=== PATIENT | male | born 1980 | race Caucasian/White ===

== ENCOUNTER 2016-04-22 12:39 | Outpatient (RCR) | payer BC ==
[2016-02-24 12:16] LABS: ALBUMIN 4.7 G/DL (3.2-4.5); BILIRUBIN,DIRECT 0.2 MG/DL (0.0-0.3); BILIRUBIN,INDIRECT 0.4 MG/DL; BILIRUBIN,TOTAL 0.6 MG/DL (0.1-1.0); TOTAL PROTEIN 6.8 G/DL (6.4-8.2)
[2016-03-24 12:16] LABS: ALBUMIN 4.3 G/DL (3.2-4.5); BILIRUBIN,DIRECT 0.2 MG/DL (0.0-0.3); BILIRUBIN,INDIRECT 0.5 MG/DL; BILIRUBIN,TOTAL 0.7 MG/DL (0.1-1.0); TOTAL PROTEIN 5.9 G/DL (6.4-8.2)
[~2016-04-22 12:39] MED LIST: FLT05NA16 NSEACH; Oseltamivir Phosphate PO; PRED20TA PO; ZLP5T PO; ZOLP10TA5 PO
[2016-04-22 13:10] LABS: ALBUMIN 4.7 G/DL (3.2-4.5); BILIRUBIN,DIRECT 0.1 MG/DL (0.0-0.3); BILIRUBIN,INDIRECT 0.4 MG/DL; BILIRUBIN,TOTAL 0.5 MG/DL (0.1-1.0); TOTAL PROTEIN 6.7 G/DL (6.4-8.2)
== END 2016-05-24 | disposition home or self-care (01) ==
LOC: LAB 12:39
PROVIDERS: ATTEND Internal Medicine
DX: R94.5 Abnormal results of liver function studies (principal)
CPT/HCPCS: 36415; 80076

== ENCOUNTER 2016-06-22 11:24 | Outpatient (RCR) | payer BC ==
[2016-05-26 09:13] LABS: ALBUMIN 4.5 G/DL (3.2-4.5); BILIRUBIN,DIRECT 0.2 MG/DL (0.0-0.3); BILIRUBIN,INDIRECT 0.6 MG/DL; BILIRUBIN,TOTAL 0.8 MG/DL (0.1-1.0); TOTAL PROTEIN 6.4 G/DL (6.4-8.2)
[2016-06-22 11:48] LABS: ALBUMIN 4.5 G/DL (3.2-4.5); BILIRUBIN,DIRECT 0.2 MG/DL (0.0-0.3); BILIRUBIN,INDIRECT 0.3 MG/DL; BILIRUBIN,TOTAL 0.5 MG/DL (0.1-1.0); TOTAL PROTEIN 6.5 G/DL (6.4-8.2)
[2016-08-09] MEDS ORDERED: ONDA4TAB8 PO ×2 (11:21→11:29)
[2016-08-09] MEDS ORDERED: MECL-106 PO ×2 (11:21→11:29)
[2016-08-09] MEDS ORDERED: SCOP1PAT TD ×2 (11:21→11:29)
[2016-08-10] MEDS ORDERED: MODA200T48 PO (13:51)
[2016-08-10] MEDS ORDERED: TERI14TA PO (13:51)
== END 2016-08-24 | disposition home or self-care (01) ==
LOC: LAB 11:24
PROVIDERS: ATTEND Internal Medicine
DX: R94.5 Abnormal results of liver function studies (principal)
CPT/HCPCS: 36415; 80076

== ENCOUNTER → 2016-07-23 | Outpatient (CLI) | payer BC ==
[~2016-07-23] MED LIST changes: +MECL-106 PO; +MODA200T48 PO; +ONDA4TAB8 PO; +SCOP1PAT TD; +TERI14TA PO
[2016-07-23 08:30] LABS: BASOPHILS % (AUTO) 1 % (0-10); EOSINOPHILS # (AUTO) 0.1 10^3/uL (0.0-0.3); EOSINOPHILS % (AUTO) 2 % (0-10); LYMPHOCYTES # (AUTO) 1.3 X 10^3 (1.0-4.0); LYMPHOCYTES % (AUTO) 32 % (12-44); MEAN CORPUSCULAR HEMOGLOBIN 31 PG (25-34); MEAN CORPUSCULAR HGB CONC 35 G/DL (32-36); MEAN CORPUSCULAR VOLUME 89 FL (80-99); MEAN PLATELET VOLUME 9.4 FL (7.4-10.4); MONOCYTES # (AUTO) 0.5 X 10^3 (0.0-1.0); MONOCYTES % (AUTO) 11 % (0-12); NEUTROPHILS # (AUTO) 2.2 X 10^3 (1.8-7.8); NEUTROPHILS % (AUTO) 54 % (42-75); PLATELET COUNT 228 10^3/uL (130-400); RED BLOOD COUNT 5.15 10^6/uL (4.35-5.85); RED CELL DISTRIBUTION WIDTH 12.5 % (10.0-14.5)
[2016-07-23 08:51] LABS: ALANINE AMINOTRANSFERASE 19 U/L (0-55); ALBUMIN 4.2 G/DL (3.2-4.5); ANION GAP 5 MMOL/L (5-14); ASPARTATE AMINO TRANSFERASE 19 U/L (5-34); BILIRUBIN,DIRECT 0.3 MG/DL (0.0-0.3); BILIRUBIN,INDIRECT 0.5 MG/DL; BILIRUBIN,TOTAL 0.8 MG/DL (0.1-1.0); BLOOD UREA NITROGEN 16 MG/DL (7-18); BUN/CREATININE RATIO 15; CALCIUM 8.9 MG/DL (8.5-10.1); CARBON DIOXIDE 27 MMOL/L (21-32); CHLORIDE 108 MMOL/L (98-107); CHOLESTEROL 167 MG/DL (< 200); CREATININE SERUM 1.09 MG/DL (0.60-1.30); GFR ESTIMATED > 60; GLUCOSE 85 MG/DL (70-105); POTASSIUM 4.1 MMOL/L (3.6-5.0); SODIUM 140 MMOL/L (135-145); TOTAL PROTEIN 6.3 G/DL (6.4-8.2); TRIGLYCERIDES 82 MG/DL (<150)
== END ==
LOC: LAB 08:11
PROVIDERS: ATTEND Internal Medicine
DX: Z00.00 Encounter for general adult medical examination without abnormal findings (principal); E78.1 Pure hyperglyceridemia; G35 Multiple sclerosis; R73.9 Hyperglycemia, unspecified
CPT/HCPCS: 36415; 80048; 80076; 82465; 83036; 84478; 85025

== ENCOUNTER 2016-08-09 09:29 | Emergency (ER) | payer BC ==
[~2016-08-09] VITALS: Ht 177.8 cm; Wt 81.6 kg
[~2016-08-09 09:29] MED LIST changes: -MECL-106 PO; -MODA200T48 PO; -ONDA4TAB8 PO; -SCOP1PAT TD; -TERI14TA PO
[2016-08-09] MEDS ORDERED: SCOPOLAMINE 1.5 MG (TRANSDERM-SCOP) PATCH TD ONE (10:00)
[2016-08-09] MEDS ORDERED: MECLIZINE 25 MG (ANTIVERT) TAB PO ONE (10:00)
[2016-08-09] MEDS ORDERED: ONDANSETRON 4 MG/2 ML (SDV) Z0FRAN IVP ONE (10:15)
[2016-08-09] MEDS ORDERED: methylPREDNISolone SOD SUCC 1,000 MG in NS (IVPB) 100 ML IV ONE (10:15)
[2016-08-09 10:27] LABS: BASOPHILS % (AUTO) 1 % (0-10); EOSINOPHILS # (AUTO) 0.1 10^3/uL (0.0-0.3); EOSINOPHILS % (AUTO) 2 % (0-10); LYMPHOCYTES # (AUTO) 1.3 X 10^3 (1.0-4.0); LYMPHOCYTES % (AUTO) 30 % (12-44); MEAN CORPUSCULAR HEMOGLOBIN 31 PG (25-34); MEAN CORPUSCULAR HGB CONC 34 G/DL (32-36); MEAN CORPUSCULAR VOLUME 90 FL (80-99); MEAN PLATELET VOLUME 9.3 FL (7.4-10.4); MONOCYTES # (AUTO) 0.5 X 10^3 (0.0-1.0); MONOCYTES % (AUTO) 11 % (0-12); NEUTROPHILS # (AUTO) 2.4 X 10^3 (1.8-7.8); NEUTROPHILS % (AUTO) 56 % (42-75); PLATELET COUNT 225 10^3/uL (130-400); RED BLOOD COUNT 5.04 10^6/uL (4.35-5.85); RED CELL DISTRIBUTION WIDTH 12.4 % (10.0-14.5); WHITE BLOOD COUNT 4.3 10^3/uL (4.3-11.0)
[2016-08-09 10:51] LABS: ALANINE AMINOTRANSFERASE 19 U/L (0-55); ALBUMIN 4.4 G/DL (3.2-4.5); ANION GAP 9 MMOL/L (5-14); ASPARTATE AMINO TRANSFERASE 24 U/L (5-34); BILIRUBIN,TOTAL 0.7 MG/DL (0.1-1.0); BLOOD UREA NITROGEN 17 MG/DL (7-18); BUN/CREATININE RATIO 16; CARBON DIOXIDE 25 MMOL/L (21-32); CHLORIDE 107 MMOL/L (98-107); CREATININE SERUM 1.05 MG/DL (0.60-1.30); GFR ESTIMATED > 60; GLUCOSE 88 MG/DL (70-105); MAGNESIUM 2.4 MG/DL (1.8-2.4); SODIUM 141 MMOL/L (135-145); TOTAL PROTEIN 6.4 G/DL (6.4-8.2)
--- NOTE | 2016-08-09 10:54 | Diagnostic Imaging Report ---
PROCEDURE: CT head without contrast. TECHNIQUE: Multiple contiguous axial images were obtained through the brain without the use of intravenous contrast. INDICATION: Dizziness. Vision problems. History of multiple sclerosis. COMPARISON: MRI brain without and with IV contrast 03/08/2015. FINDINGS: No intracranial hemorrhage, mass effect, hydrocephalus or extra-axial fluid collections. No CT evidence of acute infarction. The visualized paranasal sinuses, mastoids and orbits are negative. Osseous structures are intact. IMPRESSION: Negative head CT. Dictated by: Dictated on workstation # [id number]
--- NOTE | 2016-08-09 10:57 | ED Neurological Problem ---
General Chief Complaint: Dizziness/Syncope Stated Complaint: MS/VISION ISSUES/LOSS BALANCE/L SIDE NUMBNESS Nursing Triage Note: PT C/O DIZZINESS AND RECENT VERTIGO. HE REPORTS THIS AM THAT UPON AWAKENING HE HAD SOME BLURRED VISION WITH HEAD MOVEMENT. Nursing Sepsis Screen: No Definite Risk Source: patient History of Present Illness Time seen by provider: 09:58 Initial Comments PT STATES HE WAS A LITTLE DIZZY LAST WEEK, BUT WOKE UP THIS AM VERY DIZZY STATES HE HAS SIGNIFICANT DIZZINESS TURNING HIS HEAD TO THE RIGHT, WHICH ALSO CAUSES BLURRED AND DOUBLE VISION--STATES HE CANNOT LOOK TO THE RIGHT WITHOUT GETTING VERY DIZZY CLOSING HIS EYES ALSO CAUSES MUCH DIZZINESS STATES HE FELL OVER THIS AM, NO INJURY--STATES HE IS WANTING TO WALK TO THE LEFT STATES HE IS TINGLY ON LEFT SIDE OF BODY, FROM THE TOP OF HIS HEAD ON THE LEFT, DOWN TO HIS TOES C/O NAUSEA, NO VOMITING C/O 'ELECTRIC SHOCKS" FROM HIS SPIN TO HIS HEAD PT HAS M.S. AND HAS HAD 3 FLARES SINCE HE WAS DX AND THE SYMPTOMS OF NUMBNESS/ TINGLING ON LEFT SIDE OF THE BODY ARE SIMILAR, BUT HAS NEVER BEEN DIZZY WITH IT ALWAYS HAS SOME NUMBNESS/TINGLING TO INNER ASPECT OF LEFT ARM AND LEFT THUMB, INDEX AND MIDDLE FINGER. TODAY, HE ALSO HAS NUMBNESS/TINGLING TO DORSAL/OUTER ASPECT OF LEFT ARM AND ALSO LEFT 4TH AND 5TH FINGERS. NO PAIN NO MOTOR DEFICITS NO SWALLOWING PROBLEMS PT STATES WHEN HE HAS HAD FLARES OF M.S. IN THE PAST, HE HAS ALWAYS HAD OUTPATIENT SOLU-MEDROL 1000 MG A DAY X 3 DAYS AND HAS ALWAYS HELPED. PCP: DR. DALE NEUROLOGIST: DR. VALENTINA CEBALLOS--SEES IN [facility]--HAS AN APPOINTMENT THIS WEEK FOR ROUTINE FOLLOW UP Allergies and Home Medications Allergies Coded Allergies: NKANo Known Allergies (Unverified Allergy, Mild, 02/07/09) Home Medications Fluticasone Propionate 16 Gm [place], 2 SPRAYS NSEACH DAILY, #1 Prescribed by: SAVANAH DALE on 06/13/14 1249 Meclizine HCl 25 Mg Tablet, 25-50 MG PO Q6H, #30 Prescribed by: ZARA HERNANDEZ on 08/09/16 1129 Ondansetron 4 Mg Tab.rapdis, 4 MG PO Q4H, #10 Prescribed by: ZARA HERNANDEZ on 08/09/16 1129 Prednisone 20 Mg Tablet, 40 MG PO DAILY, (Reported) TAKES 2 (20MG) TABLET Scopolamine 1 Each Patch.td72, 1 EACH TD Q72 HOURS, #3 Prescribed by: ZARA HERNANDEZ on 08/09/16 1129 Zolpidem Tartrate 10 Mg Tablet, 10 MG PO HS, (Reported) [Oseltamivir Phosphate] 75 MG CAP, 75 MG PO BID, #7 Prescribed by: SAVANAH DALE on 06/13/14 1249 Constitutional: see HPI, No diaphoresis, dizziness Eyes: See HPI, Vision Changes Ears, Nose, Mouth, Throat: no symptoms reported Respiratory: no symptoms reported Cardiovascular: no symptoms reported Gastrointestinal: see HPI, nausea, No vomiting Genitourinary: no symptoms reported Musculoskeletal: no symptoms reported Skin: no symptoms reported Psychiatric/Neurological: See HPI, Denies Headache, Numbness, Tingling, Denies Weakness Endocrine: No Symptoms Reported Hematologic/Lymphatic: No Symptoms Reported Past Elupvlt-Yrsulc-Atifcn Hx Patient Social History Alcohol Use: Denies Use Recreational Drug Use: No Smoking Status: Never a Smoker 2nd Hand Smoke Exposure: No Recent Foreign Travel: No Contact w/Someone Who Travel: No Recent Infectious Disease Expo: No Recent Hopitalizations: No Immunizations Up To Date Tetanus Booster (TDap): Less than 5yrs PED Vaccines UTD: No Date of Influenza Vaccine: Jan 27, 2014 Surgeries HX Surgeries: Yes (LEFT KNEE SCOPE) Surgeries: Gallbladder, Orthopedic Respiratory Hx Respiratory Disorders: No Cardiovascular Hx Cardiac Disorders: No Neurological Hx Neurological Disorders: Yes Neurological Disorders: Multiple Sclerosis Reproductive System Hx Reproductive Disorders: No Sexually Transmitted Disease: No HIV/AIDS: No Genitourinary Hx Genitourinary Disorders: No Gastrointestinal Hx Gastrointestinal Disorders: No Musculoskeletal Hx Musculoskeletal Disorders: Yes (wrist and hand) Musculoskeletal Disorders: Fractures Endocrine Hx Endocrine Disorders: No HEENT HX ENT Disorders: No (wears contacts) Hearing Impairment: Denies Cancer Hx Cancer: No Psychosocial Hx Psychiatric Problems: No Integumentary HX Skin/Integumentary Disorder: No Blood Transfusions Hx Blood Disorders: No Adverse Reaction to a Blood Tr: No Family Medical History Family Medial History: Hypercholesterolemia 19 MOTHER Hypertension 19 FATHER 19 MOTHER Physical Exam Vital Signs Vital Sign - Last 12Hours 08/09/16 09:45 Temp 98.1 Pulse 65 Resp 16 B/P (MAP) 141/98 Pulse Ox 97 O2 Delivery Room Air Capillary Refill : Less Than 3 Seconds General Appearance: WD/WN, no apparent distress HEENT: PERRL/EOMI, normal ENT inspection, TMs normal, pharynx normal Neck: non-tender, full range of motion, supple, normal inspection Respiratory: normal breath sounds, no respiratory distress, no accessory muscle use Cardiovascular: normal peripheral pulses, regular rate, rhythm, no edema, no JVD, no murmur Peripheral Pulses: 2+ Dorsalis Pedis (R), 2+ Left Dors-Pedis (L), 2+ Radial Pulses (R), 2+ Radial Pulses (L) Gastrointestinal: normal bowel sounds, non tender, soft, no organomegaly, no pulsatile mass Back: normal inspection Extremities: normal range of motion, non-tender, normal inspection, no pedal edema, no calf tenderness, normal capillary refill Neurologic/Psychiatric: time clock mechanic II-XII nml as tested, no motor/sensory deficits, alert, normal mood/affect, oriented x 3 Crainal Nerves: normal hearing, normal speech, PERRL Coordination/Gait: normal finger to nose Motor/Sensory: no motor deficit, no sensory deficit, no pronator drift Reflexes: 1+ Bicep (R), 1+ Bicep (L), 1+ Knee (R), 1+ Knee (L) Skin: normal color, warm/dry Progress/Results/Core Measures Results/Orders Lab Results Laboratory Tests Test 08/09/16 10:20 Range/Units White Blood Count 4.3 4.3-11.0 10^3/uL Red Blood Count 5.04 4.35-5.85 10^6/uL Hemoglobin 15.4 13.3-17.7 G/DL Hematocrit 45 40-54 % Mean Corpuscular Volume 90 80-99 FL Mean Corpuscular Hemoglobin 31 25-34 PG Mean Corpuscular Hemoglobin Concent 34 32-36 G/DL Red Cell Distribution Width 12.4 10.0-14.5 % Platelet Count 225 130-400 10^3/uL Mean Platelet Volume 9.3 7.4-10.4 FL Neutrophils (%) (Auto) 56 42-75 % Lymphocytes (%) (Auto) 30 12-44 % Monocytes (%) (Auto) 11 0-12 % Eosinophils (%) (Auto) 2 0-10 % Basophils (%) (Auto) 1 0-10 % Neutrophils # (Auto) 2.4 1.8-7.8 X 10^3 Lymphocytes # (Auto) 1.3 1.0-4.0 X 10^3 Monocytes # (Auto) 0.5 0.0-1.0 X 10^3 Eosinophils # (Auto) 0.1 0.0-0.3 10^3/uL Basophils # (Auto) 0.0 0.0-0.1 10^3/uL Sodium Level 141 135-145 MMOL/L Potassium Level 4.0 3.6-5.0 MMOL/L Chloride Level 107 98-107 MMOL/L Carbon Dioxide Level 25 21-32 MMOL/L Anion Gap 9 5-14 MMOL/L Blood Urea Nitrogen 17 7-18 MG/DL Creatinine 1.05 0.60-1.30 MG/DL Estimat Glomerular Filtration Rate > 60 BUN/Creatinine Ratio 16 Glucose Level 88 70-105 MG/DL Calcium Level 9.0 8.5-10.1 MG/DL Magnesium Level 2.4 1.8-2.4 MG/DL Total Bilirubin 0.7 0.1-1.0 MG/DL Aspartate Amino Transf (AST/SGOT) 24 5-34 U/L Alanine Aminotransferase (ALT/SGPT) 19 0-55 U/L Alkaline Phosphatase 45 40-136 U/L Total Protein 6.4 6.4-8.2 G/DL Albumin 4.4 3.2-4.5 G/DL TSH [place] Testing 1.41 0.35-4.94 UIU/ML My Orders Orders - ZARA HERNANDEZ DO Saline Lock/Iv-Start (08/09/16 09:58) Monitor-Rhythm Ecg Trace Only (08/09/16 09:58) Cbc With Automated Diff (08/09/16 09:58) Comprehensive Metabolic Panel (08/09/16 09:58) Magnesium (08/09/16 09:58) Thyroid Analyzer (08/09/16 09:58) Ct Head Wo (08/09/16 09:58) Scopolamine Patch (Transderm-Scop Patch) (08/09/16 10:00) Meclizine Tablet (Antivert Tablet) (08/09/16 10:00) Ondansetron Injection (Zofran Injectio (08/09/16 10:15) Methylprednisolone Sod Succ (Solu-Medrol (08/09/16 10:15) Medications Given in ED Current Medications Medications Dose Ordered Sig/Harsh Route Start Time Stop Time Status Last Admin Dose Admin Meclizine HCl 50 mg ONCE ONCE PO 08/09/16 10:00 08/09/16 10:01 DC 08/09/16 10:33 50 MG Methylprednisolone Sodium Succinate 1000 mg/Sodium Chloride 100 ml @ 100 mls/hr ONCE ONCE IV 08/09/16 10:15 08/09/16 11:14 DC 08/09/16 10:33 100 MLS/HR Ondansetron HCl 4 mg ONCE ONCE IVP 08/09/16 10:15 08/09/16 10:16 DC 08/09/16 10:14 4 MG Scopolamine 1.5 mg ONCE ONCE TD 08/09/16 10:00 08/09/16 10:01 DC 08/09/16 10:13 1.5 MG Vital Signs/I&O Vital Sign - Last 12Hours 08/09/16 09:45 Temp 98.1 Pulse 65 Resp 16 B/P (MAP) 141/98 Pulse Ox 97 O2 Delivery Room Air Blood Pressure Mean: 112 Progress Note : Progress Note DIZZINESS BEGINNING TO EASE AT TIME OF DISMISSAL. Diagnostic Imaging Comments CT HEAD--NO ACUTE PROCESS, PER RADIOLOGIST REPORT @ 1057 Reviewed: Reviewed by Me Departure Impression Impression: Primary Impression: Exacerbation of multiple sclerosis Additional Impression: Acute epidemic vertigo Disposition: 01 HOME, SELF-CARE Condition: Stable Departure-Patient Inst. Referrals: SAVANAH DALE DO (PCP/Family) Primary Care Physician Patient Instructions: Multiple Sclerosis, Adult (DC), Vertigo (a Type of Dizziness) (DC) Add. Discharge Instructions: SLOW POSITION CHANGES FOLLOW UP WITH DR. DALE IN 1-2 DAYS RETURN TO OUTPATIENT SERVICES WEDNESDAY AND WEDNESDAY FOR OUTPATIENT IV SOLU-MEDROL All discharge instructions reviewed with patient and/or family. Voiced understanding. Scripts Ondansetron (Zofran Odt) 4 Mg Tab.rapdis 4 MG PO Q4H for Nausea/Vomiting, #10 TAB Prov: ZARA HERNANDEZ DO 08/09/16 Meclizine HCl (Meclizine HCl) 25 Mg Tablet 25-50 MG PO Q6H for Dizziness, #30 TAB Prov: DAVID,ZARA K DO 08/09/16 Scopolamine (Transderm-Scop) 1 Each Patch.td72 1 EACH TD Q72 HOURS for Dizziness, #3 PATCH Prov: ZARA HERNANDEZ DO 08/09/16 ZARA HERNANDEZ DO Aug 09, 2016 10:57
[2016-08-09] MEDS ORDERED: SCOP1PAT TD ×2 (11:21→11:29)
[2016-08-09] MEDS ORDERED: ONDA4TAB8 PO ×2 (11:21→11:29)
[2016-08-09] MEDS ORDERED: MECL-106 PO ×2 (11:21→11:29)
[2016-08-09 11:40] VITALS: BP 141/98
[2016-08-10] MEDS ORDERED: TERI14TA PO (13:51)
[2016-08-10] MEDS ORDERED: MODA200T48 PO (13:51)
== END 2016-08-09 11:40 | disposition home or self-care (01) ==
LOC: EDUNIT# 09:29 → ER 09:31
DX: G35 Multiple sclerosis (principal); A88.1 Epidemic vertigo; Z79.899 Other long term (current) drug therapy
CPT/HCPCS: 36415; 70450; 80053; 83735; 84443; 85025; 93041; 96365; 96375

== ENCOUNTER 2016-08-11 11:04 | Outpatient (RCR) | payer BC ==
[2016-08-10] MEDS: Solu-MEDROL 1000 MG/NS 100 ML (DAILY) IV SCH ×2 (12:01)
[2016-08-10 13:05] VITALS: BP 121/81
[~2016-08-11] VITALS: Ht 177.8 cm; Wt 81.6 kg
[~2016-08-11 11:04] MED LIST changes: +MECL-106 PO; +MODA200T48 PO; +ONDA4TAB8 PO; +SCOP1PAT TD; +TERI14TA PO
[2016-08-11 11:21] VITALS: BP 131/82
[2016-08-11] MEDS: Solu-MEDROL 1000 MG/NS 100 ML (DAILY) IV SCH ×2 (11:21)
--- NOTE | 2016-08-11 11:53 | Physician Query-Final Dx ---
LUIS SOL 08/11/16 1153: Clinic Account Progress/Dx Physician Query: Please give a diagnosis for the Solu-Medrol treatment thank you Date of Service Aug 11, 2016 at 11:04 ZARA HERNANDEZ DO 08/12/16 0254: Clinic Account Progress/Dx DIAGNOSIS: Diagnosis MULTIPLE SCLEROSIS EXACERBATION [facility] Aug 11, 2016 11:53 ZARA HERNANDEZ DO Aug 12, 2016 02:54
== END 2016-11-08 | disposition home or self-care (01) ==
LOC: SDC 11:04
PROVIDERS: ATTEND Emergency Medicine
DX: G35 Multiple sclerosis (principal)
CPT/HCPCS: 96365

== ENCOUNTER 2016-08-16 10:10 | Outpatient (RCR) | payer BC ==
[2016-08-14] MEDS: NS IV SCH (15:02)
[2016-08-14] MEDS: METHYLPREDNISOLONE SOD SUCC IV SCH (15:02)
[2016-08-14 15:51] VITALS: BP 132/84
[2016-08-15] MEDS: METHYLPREDNISOLONE SOD SUCC IV SCH (10:31)
[2016-08-15] MEDS: NS IV SCH (10:31)
[2016-08-15 11:02] VITALS: BP 124/76
[~2016-08-16] VITALS: Ht 177.8 cm; Wt 81.6 kg
[2016-08-16] MEDS: METHYLPREDNISOLONE SOD SUCC IV SCH (10:17)
[2016-08-16] MEDS: NS IV SCH (10:17)
[2016-08-16 10:45] VITALS: BP 131/74
== END 2016-11-12 | disposition home or self-care (01) ==
LOC: SDC 10:10
PROVIDERS: ATTEND Internal Medicine
DX: G35 Multiple sclerosis (principal)
CPT/HCPCS: 96365

== ENCOUNTER → 2016-08-17 | Outpatient (CLI) | payer BC ==
[~2016-08-17] MED LIST changes: +GADOBUTROL 10 MMOL/10 ML (GADAVIST) VIAL IV ONE
--- NOTE | 2016-08-17 11:19 | Diagnostic Imaging Report ---
CLINICAL INDICATION: Patient diagnosed with multiple sclerosis on April 2014. Patient has been having left-sided body numbness the bilateral feet numbness and trouble with his vision. EXAM: MRI of the thoracic spine performed without and with 8 cc of Gadavist IV contrast. Sequences include sagittal T1, sagittal T2, sagittal T2 fat-sat , axial T2, axial T1, axial T1 fat-sat post IV contrast, and sagittal T1 fat-sat post IV contrast. COMPARISON: MRI of the thoracic spine performed without and with IV contrast dated 05/30/2014. FINDINGS: There is no abnormal IV contrast enhancement seen on this exam. There is a stable small area of intramedullary cord signal seen within the distal thoracic spinal cord at the T12 vertebral body level. There is no associated IV contrast enhancement. This is best seen on sagittal T2 and sagittal T2 fat-sat sequences images 6 and 7. This is less apparent on the axial T2 sequence. Otherwise, the remainder of the thoracic spinal cord shows no abnormal cord signal changes. Flow artifact is seen in the intrathecal region. Again seen mild anterior chronic wedging of the T12 vertebral body. Stable T12-L1 diffuse disc bulge with small posterior disc bulge. There is stable moderate loss of intervertebral disc height. There is stable mild hypertrophic thoracic disc spurs seen throughout the thoracic spine which is most pronounced in the mid to upper regions. There is minimal slight decreased size of the posterior disc bulges at the T5-T6 and T7-T8 levels and minimal disc bulging present. There is small annular tear involving the posterior aspect of the T7-T8 level. There is a stable small T6-T7 left paracentral disc protrusion/herniation. Thoracic spine shows no significant central spinal canal or neural foramen narrowing. Stable chronic Schmorl's nodes involving the lower thoracic spine. Stable mild to moderate loss of intervertebral disc height involving the mid to upper thoracic levels. There is no paraspinal soft tissue abnormality. IMPRESSION: 1: There is stable small amount of confluent intramedullary high T2 signal seen at the T12 vertebral body level which is nonspecific. There is no associated IV contrast enhancement. This may possibly be related to a remote demyelinating plaque versus cord signal changes from disc bulge at the T12-L1 level possibly prior posttraumatic/impingement changes. There is no evidence of myelomalacia in the region and cord caliber is normal. 2: Again seen multilevel thoracic spine degenerative disc disease with no significant central spinal canal or neural foramen narrowing. 3: There is interval decreased size of posterior disc bulges at the T5-T6 and T7-T8 levels. 4: Stable T6-T7 left paracentral disc protrusion/herniation. Dictated by: Dictated on workstation # [id number]
--- NOTE | 2016-08-17 11:36 | Diagnostic Imaging Report ---
PROCEDURE: MRI lumbar spine with and without contrast. TECHNIQUE: Multiplanar, multisequence MRI of the lumbar spine was performed with and without contrast. INDICATION: Left-sided body and bilateral feet numbness. History of MS. 8 mL of Magnevist is administered intravenously. FINDINGS: The alignment of the posterior spinal line is satisfactory. There is however focal kyphotic curvature at T12/L1 level with mild wedge deformity of T12 level could be related to old trauma or developmental related. There is disc desiccation at the lower lumbar spine levels and at T12/L1. There is no significant disc height loss. No spondylolisthesis. The bone marrow signal is within normal limits. No suspicious marrow signal abnormality. There is a 1.3 x 0.5 x 0.4 cm area of T2 hyperintense signal seen within the spinal cord distal most aspect eccentric to the right side along the lower T12 level. This may relate to the provided history of multiple sclerosis. Otherwise, the conus medullaris and cauda equina appear grossly unremarkable. The conus terminates at the lower L1 level. T12/L1: There is a diffuse disc bulge with no significant spinal canal stenosis. No cord compression. The foramina are patent. L1/2: No disc herniation, no spinal canal or foraminal stenosis. L2/3: No disc herniation, no spinal canal or foraminal stenosis. L3/4: There is a mild diffuse disc bulge with an annular tear and mild facet hypertrophy. No central canal stenosis. No lateral recess stenosis. No foraminal stenosis. L4/5: There is a diffuse disc bulge and mild to moderate facet hypertrophy. No central canal, lateral recess or foraminal stenosis. L5/S1: There is a diffuse disc bulge and minimal facet hypertrophy with no central canal, or lateral recess stenosis. There is moderate to severe foraminal narrowing on the right and moderate foraminal narrowing on the left. IMPRESSION: 1. Focal nonenhancing T2 hyperintense signal abnormality in the right side of the lower spinal cord at lower T12 level concerning for demyelinating lesion related to the provided history of multiple sclerosis. 2. Generally mild disc and facet degenerative changes. There is bilateral foraminal narrowing at L5/S1 of moderate to severe degree on the right side and moderate degree on the left side. No significant spinal canal stenosis at any level. Dictated by: Dictated on workstation # [id number]
== END ==
LOC: RAD 09:14
PROVIDERS: ATTEND Internal Medicine
DX: G35 Multiple sclerosis (principal)
CPT/HCPCS: 72157; 72158

== ENCOUNTER → 2016-08-20 | Outpatient (CLI) | payer BC ==
--- NOTE | 2016-08-20 11:41 | Diagnostic Imaging Report ---
PROCEDURE: MR imaging cervical spine with and without contrast. TECHNIQUE: Multiplanar and multisequence MRI of the cervical spine was performed with and without contrast. INDICATION: History of multiple sclerosis. Blurred vision. Left side numbness in the body. 8 mL of Gadavist is administered intravenously. COMPARISON: Comparison exam of 05/30/2014 is reviewed. FINDINGS: There is satisfactory alignment of the lumbar spine. The cervical vertebral body heights are preserved. There is disc desiccation at all levels. There is mild disc height loss at the C4/5 level. The foramen magnum and upper cervical canal are widely patent. The bone marrow demonstrates no significant signal abnormality. The spinal cord demonstrates less mass effect and less prominent T2 hyperintense signal in the demyelinating plaque previously seen along the left side of the upper spinal cord centered around L2/3 level. It measures now 1.3 x 0.6 x 0.7 cm. This compares to 1.9 x 0.6 x 0.7 cm on the previous exam. There is another lesion previously seen in the mid aspect of the cervical spinal cord eccentric to the right. This lesion at this time appears very faint and is not clearly identified. No definite new lesion is seen. C2/C3: There is a mild disc spur complex eccentric to the left with no spinal canal stenosis. There is mild foraminal narrowing on the left from uncovertebral joint hypertrophy. There right foramen is patent. C3/4: There is a mild disc spur complex with no spinal canal stenosis. The neural foramina are patent. C4/5: There is a spur disc complex with no spinal canal stenosis. No foraminal narrowing. C5/6: There is a spur disc complex with no spinal canal stenosis. No foraminal narrowing. C6/7: There is mild spur disc complex with no spinal canal stenosis. No foraminal narrowing. C7/T1: No disc herniation, no spinal canal or foraminal stenosis. Postcontrast images demonstrate resolution of the previously seen enhancement in the cervical cord demyelinating plaques. No enhancing lesion in the spinal cord or the rest of the cervical spine is identified. IMPRESSION: Persistent slightly smaller demyelinating plaque in the left side of the spinal cord centered around the C2/3 level with decreased surrounding edema and diminished contrast enhancement. The previously seen other plaque along the right side of the mid cervical cord level is near completely resolved. No new lesion or abnormal enhancement in the spinal cord is seen at this time. Dictated by: Dictated on workstation # [id number]
--- NOTE | 2016-08-20 12:46 | Diagnostic Imaging Report ---
PROCEDURE: MR imaging of the brain with and without contrast. TECHNIQUE: Multiplanar, multisequence MR imaging of the brain was performed with and without contrast. INDICATION: Multiple sclerosis. Blurred vision. Left-sided body numbness and bilateral foot numbness. 8 mL of Gadavist is administered intravenously. COMPARISON: 03/08/2015. FINDINGS: There is no diffusion restriction to suggest an acute infarct or other diffusion abnormality. There is periventricular, deep and juxtacortical white matter T2 hyperintense signal abnormalities similar to the prior exam with the largest lesion measuring 1 cm in the right frontal periventricular white matter. The supratentorial lesions are unchanged when compared to the prior exam. There is however a new T2 hyperintense signal lesion seen in the posterior left side aspect of tammie which is near the junction with the right inferior cerebellar peduncle. The area involved is about 1 cm in size. It is associated with mild contrast enhancement. The central vascular flow-voids appear unremarkable. No hydrocephalus. No extra-axial fluid collection seen. The pituitary gland is normal in size. No hypothalamic or pineal region mass. The central vascular flow-voids and the internal auditory canals and inner ear structures appear grossly unremarkable. The orbits appear symmetric. There is mild mucosal thickening in the anterior ethmoidal air cells. IMPRESSION: 1. New enhancing infratentorial lesion along the posterior inferior right side aspect of tammie with associated mild post contrast enhancement suggestive of an active plaque. 2. The supratentorial plaques are stable with no change from the prior study. Dictated by: Dictated on workstation # [id number]
== END ==
LOC: RAD 09:30
PROVIDERS: ATTEND Internal Medicine
DX: G35 Multiple sclerosis (principal)
CPT/HCPCS: 70553; 72156

== ENCOUNTER → 2016-11-10 | Outpatient (CLI) | payer BC ==
[~2016-11-10] MED LIST changes: -GADOBUTROL 10 MMOL/10 ML (GADAVIST) VIAL IV ONE
[2016-11-10 08:21] LABS: ALANINE AMINOTRANSFERASE 20 U/L (0-55); ALBUMIN 4.3 GM/DL (3.2-4.5); ANION GAP 7 MMOL/L (5-14); ASPARTATE AMINO TRANSFERASE 20 U/L (5-34); BILIRUBIN,TOTAL 0.9 MG/DL (0.1-1.0); BLOOD UREA NITROGEN 16 MG/DL (7-18); BUN/CREATININE RATIO 15; CALCIUM 9.1 MG/DL (8.5-10.1); CARBON DIOXIDE 26 MMOL/L (21-32); CHLORIDE 108 MMOL/L (98-107); CHOLESTEROL 171 MG/DL (< 200); CREATININE SERUM 1.07 MG/DL (0.60-1.30); DIRECT LDL 120 MG/DL (1-129); GFR ESTIMATED > 60; GLUCOSE 87 MG/DL (70-105); POTASSIUM 4.1 MMOL/L (3.6-5.0); SODIUM 141 MMOL/L (135-145); TOTAL PROTEIN 6.4 GM/DL (6.4-8.2); TRIGLYCERIDES 87 MG/DL (<150); VLDL CHOLESTEROL 17 MG/DL (5-40)
== END ==
LOC: LAB 07:47
PROVIDERS: ATTEND Internal Medicine
DX: E78.00 Pure hypercholesterolemia, unspecified (principal); E78.1 Pure hyperglyceridemia
CPT/HCPCS: 36415; 80053; 80061

== ENCOUNTER → 2019-05-22 | Outpatient (CLI) | payer BC ==
[~2019-05-22] MED LIST changes: -SCOP1PAT TD; +SCOP1PAT11 TD
--- NOTE | 2019-05-22 17:45 | Diagnostic Imaging Report ---
INDICATION: Cough. PA and lateral chest obtained at 2:34 p.m. FINDINGS: Heart and mediastinal silhouette are normal in appearance. The lungs are clear. There is no pneumothorax or pleural fluid. IMPRESSION: Negative chest. Dictated by: Dictated on workstation # [id number]
== END ==
LOC: RAD 14:16
PROVIDERS: ATTEND Otolaryngology Otolaryngology/Facial Plastic Surgery
DX: R05 Cough (principal)
CPT/HCPCS: 71046